=== PATIENT | male | born 1950 | race Caucasian/White ===

== ENCOUNTER 2017-01-09 12:04 | Emergency (ER) | payer OTHER ==
[2017-01-09 12:22] VITALS: BP 166/96; PULSE 78; RESP 18; TEMP 98; O2SAT 97
--- NOTE | 2017-01-09 13:13 | EDPHY ---
H & P Stated Complaint: c/o inc. in lower back pain from moving Sat.- out of pain meds Time Seen by Provider: 01/09/17 12:16 HPI/ROS: CHIEF COMPLAINT: Low back pain HISTORY OF PRESENT ILLNESS: This is a 66-year-old male with chronic lumbar back pain who states that he is out of his pain medication. He was formerly a patient of [facility] and when the pain clinic closed he arranged care through [facility], Dr. Hardeep Andrews. The patient tells me that he is out of his pain medication. He reports taking morphine ER 30 mg twice daily and Dilaudid 8 mg up to 7 daily. He has not had any medication for the last 4 days. He states that he has not been able to reach Dr. Amy Anderson. He has also tried to contact his primary care physician but has thus far been unsuccessful. He denies any new numbness or weakness. He has not had bowel or bladder changes. He does note some abdominal pain and has been having some diarrhea. He vomited once last night, not since. No diaphoresis or piloerection. He has taken some aspirin and has been taking Advil up to 4 times daily. These medications are not sufficient for his pain, per his report. He is requesting a shot of Dilaudid or other opiate and also prescriptions. REVIEW OF SYSTEMS: A ten point review of systems was performed and is negative with the exception of the items mentioned in the HPI. Source: Patient Exam Limitations: No limitations - Personal History Current Tetanus Diphtheria and Acellular Pertussis (TDAP): Yes - Medical/Surgical History Hx Asthma: No Hx Chronic Respiratory Disease: No Hx Diabetes: No Hx Cardiac Disease: Yes Hx Renal Disease: No Hx Cirrhosis: No Hx Alcoholism: No Hx HIV/AIDS: No Hx Splenectomy or Spleen Trauma: No Other PMH: pmh: hypertension, high cholesterol, encephalitits, psh- hernia repair, chronic pain - Social History Smoking Status: Never smoked Alcohol Use: None Additional Social History: He is . He is retired. - Physical Exam Exam: General Appearance: Alert. Vital signs reviewed. Blood pressure 166/96. Eyes: Pupils equal and round, no conjunctival injection, no discharge. Anicteric. Respiratory: Lungs are clear to auscultation; no wheezes, rales, or rhonchi. Cardiovascular: Regular rate and rhythm; no murmur, rub, or gallop. Gastrointestinal: Abdomen is soft and nontender, no masses or organomegaly, bowel sounds normal. Skin: Warm and dry, no rashes on exposed skin, normal color. No piloerection. Back: Nontender to palpation over the thoracolumbar spine. No CVAT. Extremities: No lower extremity edema, no calf tenderness or swelling. Neurological: Alert and oriented. Moving all four extremities easily and equally. Strength is 5/5 with testing of major motor groups in both lower extremities. Sensation is intact to light touch over both lower extremities. Gait is normal. Psychiatric: Normal affect. Constitutional: Initial Vital Signs Temperature (C) 36.6 C 01/09/17 12:17 Heart Rate 78 01/09/17 12:17 Respiratory Rate 18 01/09/17 12:17 Blood Pressure 166/96 H 01/09/17 12:17 O2 Sat (%) 97 01/09/17 12:17 O2 Delivery Mode Room Air Allergies/Adverse Reactions: No Known Allergies Allergy (Verified 01/10/16 19:02) Home Medications: Medication Instructions Recorded Lisinopril 04/03/15 Morphine Sulfate [Morphine Sulfate 04/03/15 ER] PARoxetine HCL [Paxil] 04/03/15 Simvastatin 04/03/15 oxyCODONE IR [Oxycodone Ir (RX)] 5 - 10 mg PO Q6 PRN #30 tab 04/03/15 Morphine Sulfate [Morphine Sulfate 30 mg PO BID PRN #6 cap.er.pel 07/26/15 ER] Medical Decision Making ED Course/Re-evaluation: 58-year-old male with chronic low back pain who presents requesting pain medication. I have searched [place] prescription drug monitoring program. I see that on December 12, 2016 he field prescriptions from Dr. Hardeep Andrews for hydromorphone 4 mg dispense 120 and 4 morphine sulfate ER 60 mg dispense 90. Just prior to filling does prescriptions, on December 12, he also filled a prescription for hydromorphone 8 mg tablets, dispense 210. This was filled on November 28, 2016 and written on September 26, 2016. This was a prescription from [facility]. He then, on December 29, 2016 filled another prescription written by [facility] on September 26, 2016 for morphine sulfate ER 30 mg, dispense 90. He also received a prescription on December 11 for oxycodone 5 mg tablets from a doctor [place] in [place]. 12 oxycodone were dispensed. I spoke with Dr. Christiano Walter, his primary care physician. Dr. Walter received a letter from Dr. kris [facility] recognizing that the patient had been filling prescriptions without their knowledge. This was a warning letter. I spoke with [facility], , and was told that the patient has not been discontinued from their practice. However it is clear that he has run out of medications ahead of time. I was told that he has medication prescriptions dated January 11, 2017. He should be able to fill these in 2 days. They do not recommend that he be given additional opiate medication. I discussed all of the above with the patient. I do think that he is suffering from mild withdrawal. I informed him that I will not give him opiate medication in the emergency department, nor will I write him any prescriptions for opiates. He does have a prescription from Dr. Walter for some nausea medication and for Valium that he takes for muscle spasm. I have informed the patient that he will not be able to receive opiate pain medication from the emergency department for his chronic pain. I have also emphasized that he will not be able to fill prescriptions ahead of time and that his primary care physician will not write prescriptions for opiates for him. He does not have new neurologic symptoms. I considered a differential diagnosis of back pain including but not limited to muscular pain, herniated disc, spine fracture, intra-abdominal causes and urinary tract infection. However, I think that he is suffering from chronic low back pain and I think that he is drug-seeking, having misused his narcotic pain medications. Departure - Departure Disposition: Home, Routine, Self-Care Clinical Impression: Chronic low back pain Qualifiers: Back pain laterality: bilateral Sciatica presence: without sciatica Qualified Code(s): M54.5 - Low back pain Condition: Good Instructions: Chronic Back Pain (ED) Additional Instructions: Fill your prescriptions on January 11. follow up with Dr. Andrews in [place]. I know it will be hard for the next two days, but you will not be able to obtain narcotic prescriptions from any emergency department or from your primary care doctor. Referrals: Christiano Walter, [Primary Care Provider] - As per Instructions
== END 2017-01-09 13:16 | disposition home or self-care (01) ==
LOC: CED 12:04
DX: M54.5 Low back pain (principal); I10 Essential (primary) hypertension

== ENCOUNTER → 2018-03-05 | Outpatient (CLI) | payer OTHER | LOC: CIMAGING 16:12 | PROVIDERS: ATTEND Family Medicine | DX: M77.31 Calcaneal spur, right foot (principal); S92.511A Displaced fracture of proximal phalanx of right lesser toe(s), initial encounter for closed fracture | CPT/HCPCS: 73620-PO; 73660-PO ==

== ENCOUNTER → 2018-05-15 | Outpatient (CLI) | payer OTHER | LOC: FIMAGING 19:15 | PROVIDERS: ATTEND Nurse Practitioner | DX: G89.4 Chronic pain syndrome (principal); F11.20 Opioid dependence, uncomplicated; M12.88 Other specific arthropathies, not elsewhere classified, other specified site; M51.37 Other intervertebral disc degeneration, lumbosacral region; G47.33 Obstructive sleep apnea (adult) (pediatric); M51.36 Other intervertebral disc degeneration, lumbar region; M51.26 Other intervertebral disc displacement, lumbar region ==